=== PATIENT | female | born 1965 | race Caucasian/White ===

== ENCOUNTER 2017-02-22 00:48 | Emergency (ER) | payer BC ==
[~2017-02-22] VITALS: Ht 162.6 cm; Wt 61.5 kg
[~2017-02-22 00:48] MED LIST: PHEN12.5 PO; PHEN12.5 PR; PRIL40CA PO; TAMO20TA4 PO; VITAMIN D-3; ZOFR4TAB OR
[2017-02-22 01:01] VITALS: BP 149/67; PULSE 74; RESP 16; TEMP 98.4; O2SAT 98
[2017-02-22] MEDS ORDERED: PERC5TAB12 PO (02:35)
--- NOTE | 2017-02-22 02:35 | PD ---
HPI Chief Complaint: Eye Problems/Injury Time Seen by Provider: 02:28 Travel History International Travel<30 days: No Contact w/Intl Traveler<30days: No Traveled to known affect area: No History of Present Illness HPI The patient is a 51-year-old female that at 6 PM noticed sudden pain and redness in her left eye only. She denies any foreign body in her eye, trauma or rubbing her eye. PFSH Past Medical History Cancer: Yes (BREAST) Cardiovascular Problems: No Diabetes: No Diminished Hearing: No GERD: Yes Glaucoma: No Hepatitis: No Hiatal Hernia: No Hypertension: No Medical other: Yes (GOFF'S ESOPHAGUS) Respiratory: No Thyroid Disease: No Tetanus Vaccination: Unknown Influenza Vaccination: No ?: Not : 0 Ovarian Cysts: Yes (HX OF BEFORE HYSTERECTOMY) Past Surgical History Abdominal Surgery: No Cardiac Surgery: No Ear Surgery: No Endocrine Surgery: No Genitourinary Surgery: No Gynecologic Surgery: Yes (LAPAROSCOPY OVARIAN CYSTECTOMY) Hysterectomy: Yes Mastectomy: Yes (BILATERAL MASTECTOMY) Oral Surgery: No Pacemaker: No Thoracic Surgery: No Other Surgery: Yes Social History Alcohol Use: Yes (VERY RARELY) Tobacco Use: No Substance Use: No Allergies-Medications (Allergen,Severity, Reaction): Coded Allergies: diphenhydramine (Unverified Allergy, Severe, Irritability/Anxiety, ) Reported Meds & Prescriptions Reported Meds & Active Scripts Active Percocet (Oxycodone-Acetaminophen) 5-325 mg Tab 1-2 Tab PO Q6H PRN Zofran (Ondansetron Hcl) 4 Mg Tab 4 Mg OR Q6H PRN Promethazine Hcl (Promethazine HCl) 12.5 Mg Tab 12.5 Mg PO Q6HPRN FOR NAUSEA Phenergan (Promethazine HCl) 12.5 Mg Sup 12.5 Mg CO Q6HPRN FOR NAUSEA Reported [Vitamin D-3] 2,000 Iu DAILY Prilosec 40 mg cap (Omeprazole) 40 Mg Cap 40 Mg PO DAILY Nolvadex (Tamoxifen Citrate) 20 Mg Tab 20 Mg PO DAILY Review of Systems Except as stated in HPI: all other systems reviewed are Neg Physical Exam Narrative GENERAL: Well-nourished, well-developed patient in moderate apparent distress with her left eye pain. Her vital signs are normal. SKIN: Focused skin assessment warm/dry. HEAD: Normocephalic. EYES: No scleral icterus. There is injection with clear drainage. Left eye shows visual acuity of 20/30 in the right eye shows visual acuity of 20/25. No foreign body is seen under the lids but there is a corneal abrasion at 8:00. Fundi appear sharp and venous pulsations seen in the upright position. NECK: Supple, trachea midline. No JVD or lymphadenopathy. CARDIOVASCULAR: Regular rate and rhythm without murmurs, gallops, or rubs. RESPIRATORY: Breath sounds equal bilaterally. No accessory muscle use. GASTROINTESTINAL: Abdomen soft, non-tender, nondistended. MUSCULOSKELETAL: No cyanosis, or edema. BACK: Nontender without obvious deformity. No CVA tenderness. Data Data Last Documented VS Vital Signs Date Time Temp Pulse Resp B/P (MAP) Pulse Ox O2 Delivery O2 Flow Rate FiO2 02/22/17 01:32 20 02/22/17 01:01 98.4 74 149/67 (94) 98 Orders Orders Tobramycin 0.3% Opth Oint (Tobrex 0.3% O (02/22/17 02:45) MDM Medical Decision Making Medical Screen Exam Complete: Yes Emergency Medical Condition: Yes Medical Record Reviewed: Yes Differential Diagnosis Corneal abrasion, corneal erosion, foreign body left eye, conjunctivitis Narrative Course The patient has a corneal abrasion in the left eye. She will be given Tobrex ointment. She will need to follow-up with an air tester later on today or tomorrow. They are to have an appointment with the air tester because of possible narrow-angle glaucoma. Procedures Procedure Narrative The slit lens exam shows a spotty defect in the cornea similar to a staph infection but may represent an abrasive object that contacted the cornea. EKG Prior to Arrival: No EKG Not Completed: EKG Not Medically Necessary Diagnosis Primary Impression: corneal abrasion left eye Additional Instructions: The patient needs to get an appointment with an air tester later on today or tomorrow. She has a corneal abrasion/erosion on the left eye. Med/Other Pt SpecificInfo: Prescription(s) given Scripts Oxycodone-Acetaminophen (Percocet) 5-325 mg Tab 1-2 TAB PO Q6H Y for PAIN, #30 TAB 0 Refills Prov: Micheal Padron MD 02/22/17 Disposition: 01 DISCHARGE HOME Condition: Stable Micheal Padron MD Feb 22, 2017 02:35
[2017-02-22] MEDS ORDERED: TOBRAMYCIN SULFATE 0.3% OPTH OINT 3.5 GM TUBE LEFT EYE ONE (02:45)
[2017-02-22] MEDS ORDERED: oxyCODONE/ACETAMINOPHEN 7.5 MG/325 MG TAB PO ONE (03:00)
[2017-02-22 03:08] VITALS: BP 132/74
== END 2017-02-22 03:09 | disposition home or self-care (01) ==
LOC: PHED 00:48
DX: S05.02XA Injury of conjunctiva and corneal abrasion without foreign body, left eye, initial encounter (principal); X58.XXXA Exposure to other specified factors, initial encounter
CPT/HCPCS: 99283

== ENCOUNTER 2017-05-02 17:16 | Emergency (ER) | payer BC ==
[~2017-05-02] VITALS: Ht 162.6 cm; Wt 60.0 kg
[~2017-05-02 17:16] MED LIST changes: +PERC5TAB12 PO
[2017-05-02 17:21] VITALS: BP 159/73; PULSE 77; RESP 16; TEMP 97.5; O2SAT 99
[2017-05-02] MEDS ORDERED: OMEP20TA93 PO (17:28)
[2017-05-02] MEDS ORDERED: TAMO20TA6 PO (17:28)
[2017-05-02] MEDS ORDERED: AMOX875T PO (17:28)
[2017-05-02] MEDS ORDERED: LORA-392 PO (17:28)
[2017-05-02] MEDS ORDERED: CARB100C CHEW (17:39)
--- NOTE | 2017-05-02 17:39 | PD ---
HPI Chief Complaint: ENT Complaint Time Seen by Provider: 17:36 Travel History International Travel<30 days: No Contact w/Intl Traveler<30days: No Traveled to known affect area: No History of Present Illness HPI 52-year-old female presents to the emergency department complaining of right jaw pain since Tuesday. Patient states that her pain is 8/10 described as quick onset of sharp pain with relief in less than 15 minutes. Says her pain starts in her right jaw and radiates to the right cheek. Denies inciting events. States nothing makes his pain better or worse. Patient was placed on amoxicillin several days ago for a presumed dental infection however, this has not helped her pain. Patient has history of breast cancer status post mastectomy. She is currently on tamoxifen. No history of chemotherapy or radiation therapy. States she has never had this happen before. PFSH Past Medical History Cancer: Yes (BREAST) Cardiovascular Problems: No Diabetes: No Diminished Hearing: No GERD: Yes Glaucoma: No Hepatitis: No Hiatal Hernia: No Hypertension: No Respiratory: No Thyroid Disease: No ?: Not : 0 Ovarian Cysts: Yes (HX OF BEFORE HYSTERECTOMY) Past Surgical History Abdominal Surgery: No Cardiac Surgery: No Ear Surgery: No Endocrine Surgery: No Genitourinary Surgery: No Gynecologic Surgery: Yes (LAPAROSCOPY OVARIAN CYSTECTOMY) Hysterectomy: Yes Mastectomy: Yes (BILATERAL MASTECTOMY) Oral Surgery: No Pacemaker: No Thoracic Surgery: No Other Surgery: Yes Social History Alcohol Use: Yes (VERY RARELY) Tobacco Use: No Substance Use: No Allergies-Medications (Allergen,Severity, Reaction): Coded Allergies: diphenhydramine (Unverified Allergy, Severe, Irritability/Anxiety, ) Reported Meds & Prescriptions Reported Meds & Active Scripts Active Carbamazepine 100 Mg Chew 100 Mg CHEW BID 7 Days Take 2-3 hours apart from your other medication. Reported Amoxicillin 875 Mg Tab 875 Mg PO BID Ativan (Lorazepam) 0.5 Mg Tab 0.5 Mg PO HS Omeprazole 20 Mg Tab 20 Mg PO BID Tamoxifen (Tamoxifen Citrate) 20 Mg Tab 20 Mg PO DAILY Review of Systems Except as stated in HPI: all other systems reviewed are Neg Physical Exam Narrative GENERAL: Well-nourished, well-developed patient. SKIN: Focused skin assessment warm/dry. HEAD: Normocephalic. EYES: No scleral icterus. No injection or drainage. NECK: Supple, trachea midline. No JVD or lymphadenopathy. Nontender to palpation of the TMJs, no clicking or popping. Jaw tracks normally. Good dentition, no areas of fluctuance within the gingiva, no obvious fractures of the teeth CARDIOVASCULAR: Regular rate and rhythm without murmurs, gallops, or rubs. RESPIRATORY: Breath sounds equal bilaterally. No accessory muscle use. GASTROINTESTINAL: Abdomen soft, non-tender, nondistended. MUSCULOSKELETAL: No cyanosis, or edema. BACK: Nontender without obvious deformity. No CVA tenderness. Data Data Last Documented VS Vital Signs Date Time Temp Pulse Resp B/P (MAP) Pulse Ox O2 Delivery O2 Flow Rate FiO2 05/02/17 17:21 97.5 77 16 159/73 (101) 99 Orders Orders Carbamazepine (Tegretol) (05/02/17 17:45) Ed Discharge Order (05/02/17 17:40) [facility] Medical Decision Making Medical Screen Exam Complete: Yes Emergency Medical Condition: Yes Differential Diagnosis right TMJ, trigeminal neuralgia, dental abscess, sinusitis Narrative Course 52-year-old female presents to the emergency department complaining of right jaw pain since Tuesday. Patient states that her pain is 8/10 described as quick onset of sharp pain with relief in less than 15 minutes. Says her pain starts in her right jaw and radiates to the right cheek. Denies inciting events. States nothing makes his pain better or worse. Patient was placed on amoxicillin several days ago for a presumed dental infection however, this has not helped her pain. Patient has history of breast cancer status post mastectomy. She is currently on tamoxifen. No history of chemotherapy or radiation therapy. States she has never had this happen before. Vital signs stable Patient describing a treated on neuralgia as the patient has a quick onset and goes away on its own. No inciting events. No palliative or provocative factors. No evidence of dental infections. Patient will be discharged with carbamazepine. Hold amoxicillin. Advised to follow-up with the primary care physician within 2-3 days. Recommend her carbamazepine with tamoxifen 2-3 hours. Return to the emergency department for worsening or persistent symptoms. Diagnosis Primary Impression: Trigeminal neuralgia of right side of face Referrals: Primary Care Physician Additional Instructions: Follow up with your primary care physician within 2-3 days. If your symptoms persist or worsen, return to the emergency department. You may stop the amoxicillin. Scripts Carbamazepine (Carbamazepine) 100 Mg Chew 100 MG CHEW BID for 7 Days, #14 TAB 0 Refills Take 2-3 hours apart from your other medication. Prov: Greer Zaldivar 05/02/17 Disposition: 01 DISCHARGE HOME Condition: Stable Greer Zaldivar May 02, 2017 17:39
[2017-05-02] MEDS ORDERED: carBAMazepine 200 MG TAB PO ONE (17:45)
== END 2017-05-02 17:55 | disposition home or self-care (01) ==
LOC: PHEFT 17:16
DX: G50.0 Trigeminal neuralgia (principal); K21.9 Gastro-esophageal reflux disease without esophagitis; Z85.3 Personal history of malignant neoplasm of breast; Z90.13 Acquired absence of bilateral breasts and nipples
CPT/HCPCS: 99283